=== PATIENT | female | born 1950 | race Caucasian/White ===

== ENCOUNTER 2022-08-07 16:07 | Observation (INO) | payer OTHER, BC ==
[2022-08-07 16:41] VITALS: BMI 32.7
[2022-08-07] MEDS ORDERED: MECLIZINE HCL 25 MG TABLET (FP) PO ONE (17:54)
[2022-08-07] MEDS ORDERED: MECLIZINE HCL 25 MG TABLET (FP) ONE (18:05)
[2022-08-07] MEDS ORDERED: SODIUM CHLORIDE 0.9% 500 ML INFUS.BAG IV ONE (19:17)
[2022-08-07] MEDS ORDERED: METOCLOPRAMIDE HCL INJECTION 10 MG/2 ML VIAL IVPUSH ONE (19:17)
[2022-08-07] MEDS ORDERED: METOCLOPRAMIDE HCL INJECTION 10 MG/2 ML VIAL ONE (20:34)
[2022-08-07 21:29] LABS: EOS % 0.9 % (0-4.5); HEMATOCRIT 40.1 % (32.4-45.2); HEMOGLOBIN 13.2 GM/dL (10.7-15.3); INR 1.09 (0.83-1.09); LYMPH % 24.2 % (8-40); MCH 29.6 pg (25.7-33.7); MCHC 32.9 g/dl (32.0-36.0); MEAN PLT VOLUME 7.5 fl (7.5-11.1); MONO % 6.3 % (3.8-10.2); NEUT % 67.6 % (42.8-82.8); PLATELET COUNT 399 10^3/uL (134-434); PROTHROMBIN TIME (PATIENT) 12.5 SEC (9.7-13.0); RBC 4.46 M/mm3 (3.60-5.2); RDW 13.9 % (11.6-15.6); WHITE BLOOD COUNT 10.3 K/mm3 (4.0-10.0)
[2022-08-07 21:30] LABS: ACTIVATED PTT 30.7 SECONDS (25.2-36.5)
[2022-08-07 21:45] LABS: ALBUMIN 3.4 g/dl (3.4-5.0); BLOOD UREA NITROGEN 15.4 mg/dL (7-18); CALCIUM 9.2 mg/dL (8.5-10.1)
[2022-08-07 21:49] LABS: CREATININE 0.7 mg/dL (0.55-1.3)
[2022-08-07 21:50] LABS: BILIRUBIN,TOTAL 0.6 mg/dL (0.2-1)
[2022-08-07 21:51] LABS: CHOLESTEROL 195 mg/dL (50-200); TOT PROT 6.5 g/dl (6.4-8.2); TRIGLYCERIDES 63 mg/dL (0-150)
[2022-08-07 21:52] LABS: LDL CHOLESTEROL (ONLY SJRH) 107 mg/dL (5-100)
[2022-08-07 21:54] LABS: HDL CHOLESTEROL 81 mg/dL (40-60)
[2022-08-08] MEDS ORDERED: ACETAMINOPHEN 325 MG TABLET (FP) ONE ×2 (05:12→19:58)
[2022-08-08] MEDS: ACETAMINOPHEN 325 MG TABLET (FP) PO PRN ×2 (05:15→20:12)
[2022-08-08 08:16] LABS: BASO % 0.9 % (0-2.0); EOS % 1.8 % (0-4.5); HEMATOCRIT 36.7 % (32.4-45.2); HEMOGLOBIN 11.6 GM/dL (10.7-15.3); LYMPH % 30.2 % (8-40); MCHC 31.5 g/dl (32.0-36.0); MEAN CELL VOLUME 91.9 fl (80-96); MEAN PLT VOLUME 7.4 fl (7.5-11.1); MONO % 7.7 % (3.8-10.2); NEUT % 59.4 % (42.8-82.8); PLATELET COUNT 336 10^3/uL (134-434); RDW 14.2 % (11.6-15.6); WHITE BLOOD COUNT 7.7 K/mm3 (4.0-10.0)
[2022-08-08 08:33] LABS: CALCIUM 8.6 mg/dL (8.5-10.1)
[2022-08-08 08:34] LABS: BLOOD UREA NITROGEN 14.1 mg/dL (7-18); MAGNESIUM 2.1 mg/dL (1.8-2.4)
[2022-08-08 08:37] LABS: CREATININE 0.7 mg/dL (0.55-1.3); PHOSPHOROUS 3.4 mg/dL (2.5-4.9)
[2022-08-08 08:38] LABS: BILIRUBIN,TOTAL 0.4 mg/dL (0.2-1); TOT PROT 5.6 g/dl (6.4-8.2)
[2022-08-08] MEDS ORDERED: ENOXAPARIN NA (PORCINE) 40 MG/0.4 ML DISP.SYRIN SQ ONE (09:09)
[2022-08-08] MEDS: ENOXAPARIN NA (PORCINE) 40 MG/0.4 ML DISP.SYRIN SQ SCH (09:17)
[2022-08-08] MEDS ORDERED: ALPRAZolam 0.25 MG TABLET PO PRN (12:41)
[2022-08-08] MEDS: buPROPion HCL 100 MG TABLET PO SCH ×2 (12:51→22:32)
[2022-08-08] MEDS: lamoTRIgine 100 MG TABLET PO SCH (12:51)
[2022-08-08] MEDS ORDERED: MECLIZINE HCL 12.5 MG TABLET PO PRN (13:30)
[2022-08-08] MEDS ORDERED: ALPRAZolam 0.25 MG TABLET ONE (16:34)
[2022-08-09 02:08] VITALS: RESP 17
[2022-08-09 07:29] VITALS: BP 151/83; PULSE 65; TEMP 97.6
[2022-08-09] MEDS ORDERED: lamoTRIgine 100 MG TABLET ONE (10:29)
[2022-08-09] MEDS ORDERED: ENOXAPARIN NA (PORCINE) 40 MG/0.4 ML DISP.SYRIN SQ ONE (10:30)
[2022-08-09] MEDS ORDERED: buPROPion HCL 100 MG TABLET ONE (10:30)
[2022-08-09] MEDS: lamoTRIgine 100 MG TABLET PO SCH (10:46)
[2022-08-09] MEDS: ENOXAPARIN NA (PORCINE) 40 MG/0.4 ML DISP.SYRIN SQ SCH (10:46)
[2022-08-09] MEDS: buPROPion HCL 100 MG TABLET PO SCH (10:46)
[2022-08-09] MEDS ORDERED: ROSUVASTATIN CA 20 MG TABLET PO ONE (10:53)
[2022-08-09] MEDS ORDERED: LOSARTAN POTASSIUM 25 MG TABLET PO ONE (10:54)
[2022-08-09] MEDS ORDERED: ASPIRIN 81 MG CHEWABLE TABLETS PO SCH (11:00)
== END 2022-08-09 13:20 | disposition home or self-care (01) ==
LOC: JER 16:07 → JERBED 19:15
PROVIDERS: ADMIT Internal Medicine
PROC: 3E023GC Introduction of Other Therapeutic Substance into Muscle, Percutaneous Approach (ICD-10-PCS; principal; 2022-08-07)
PROC: 3E023GC Introduction of Other Therapeutic Substance into Muscle, Percutaneous Approach (ICD-10-PCS; 2022-08-07)
PROC: 3E033GC Introduction of Other Therapeutic Substance into Peripheral Vein, Percutaneous Approach (ICD-10-PCS; 2022-08-07)
PROC: 3E0337Z Introduction of Electrolytic and Water Balance Substance into Peripheral Vein, Percutaneous Approach (ICD-10-PCS; 2022-08-07)
DX: F41.9 Anxiety disorder, unspecified (principal); I10 Essential (primary) hypertension; F31.9 Bipolar disorder, unspecified; G45.9 Transient cerebral ischemic attack, unspecified; Z29.8 Encounter for other specified prophylactic measures; R42 Dizziness and giddiness
CPT/HCPCS: 0241U-QW; 36415; 70450-TC; 70551-TC; 71045-TC-FY; 80053; 80061; 83036; 83735; 84100; 84484; 85025; 85610; 85730; 93005; 93010; 96361; 96372; 96374; 99285-25; G0378

== ENCOUNTER 2023-10-14 18:52 | Inpatient (IN) | payer OTHER, BC ==
[2023-10-14 19:00] VITALS: BMI 36.5
[2023-10-14 20:24] LABS: BASO % 0.8 % (0-2.0); EOS % 0.9 % (0-4.5); HEMATOCRIT 33.3 % (32.4-45.2); HEMOGLOBIN 10.9 GM/dL (10.7-15.3); LYMPH % 20.3 % (8-40); MCH 28.8 pg (25.7-33.7); MCHC 32.6 g/dl (32.0-36.0); MEAN CELL VOLUME 88.3 fl (80-96); MEAN PLT VOLUME 7.6 fl (7.5-11.1); MONO % 5.5 % (3.8-10.2); NEUT % 72.5 % (42.8-82.8); PLATELET COUNT 331 10^3/uL (134-434); RBC 3.77 M/mm3 (3.60-5.2); WHITE BLOOD COUNT 7.3 K/mm3 (4.0-10.0)
[2023-10-14 20:37] LABS: ACTIVATED PTT 30.6 SECONDS (25.2-36.5); INR 1.08 (0.83-1.09); PROTHROMBIN TIME (PATIENT) 12.5 SEC (9.7-13.0)
[2023-10-14 20:41] LABS: POTASSIUM 4.3 mmol/L (3.5-5.1)
[2023-10-14 20:43] LABS: CALCIUM 8.8 mg/dL (8.5-10.1)
[2023-10-14 20:44] LABS: BLOOD UREA NITROGEN 11.9 mg/dL (7-18)
[2023-10-14 20:46] LABS: CREATININE 0.6 mg/dL (0.55-1.3)
[2023-10-14 20:48] LABS: BILIRUBIN,TOTAL 0.5 mg/dL (0.2-1); TOT PROT 6.1 g/dl (6.4-8.2)
[2023-10-14 20:51] LABS: N-TERMINAL BNP 458.6 pg/ml (5-125)
[2023-10-14] MEDS ORDERED: ATORVASTATIN CA 80 MG TABLET (FP) ONE (21:14)
[2023-10-14] MEDS ORDERED: ASPIRIN 81 MG CHEWABLE TABLETS ONE (21:15)
[2023-10-14] MEDS: ASPIRIN 81 MG CHEWABLE TABLETS PO ONE ×2 (21:22)
[2023-10-14] MEDS: ATORVASTATIN CA 80 MG TABLET (FP) PO ONE (21:23)
[2023-10-14 21:39] LABS: URINE APPEARANCE CLEAR; URINE BILIRUBIN NEGATIVE (NEGATIVE); URINE COLOR YELLOW; URINE GLUCOSE (UA) NEGATIVE (NEGATIVE); URINE KETONE NEGATIVE (NEGATIVE); URINE LEUK ESTERASE NEGATIVE (NEGATIVE); URINE NITRITE NEGATIVE (NEGATIVE); URINE PROTEIN NEGATIVE (NEGATIVE); URINE UROBILINOGEN 0.2 mg/dL (0.2-1.0)
[2023-10-14] MEDS ORDERED: HEPARIN NA (PORCINE) 5,000 UNITS/ML 1ML VIAL IVPUSH PRN (22:10)
[2023-10-14] MEDS ORDERED: FUROSEMIDE 40 MG/4 ML INJECTABLE VIAL ONE (22:18)
[2023-10-14] MEDS: FUROSEMIDE 40 MG/4 ML INJECTABLE VIAL IVPUSH ONE (22:22)
[2023-10-14] MEDS ORDERED: HEPARIN INFUSION - 25,000 UNITS/500 ML INFUS.BAG IVPB ONE (22:24)
[2023-10-14] MEDS ORDERED: HEPARIN NA (PORCINE) 5,000 UNITS/ML 1ML VIAL ONE (22:24)
[2023-10-14] MEDS: HEPARIN NA (PORCINE) 5,000 UNITS/ML 1ML VIAL IVPUSH STA (22:30)
[2023-10-14] MEDS: HEPARIN SOD,PORK IN 0.45% NACL 25,000 UNITS/500 ML INFUS.BAG IVPB SCH (22:30)
[2023-10-15] MEDS: ACETAMINOPHEN 325 MG TABLET (FP) PO ONE (06:06)
[2023-10-15] MEDS: PANTOPRAZOLE 40 MG TABLET PO SCH (06:07)
[2023-10-15] MEDS: LOSARTAN POTASSIUM 50 MG TABLET PO ONE (06:13)
[2023-10-15] MEDS: HEPARIN NA (PORCINE) 5,000 UNITS/ML 1ML VIAL IVPUSH PRN (06:46)
[2023-10-15 06:47] LABS: POTASSIUM 3.5 mmol/L (3.5-5.1)
[2023-10-15 06:53] LABS: BLOOD UREA NITROGEN 14.7 mg/dL (7-18); CALCIUM 8.3 mg/dL (8.5-10.1)
[2023-10-15 06:54] LABS: MAGNESIUM 1.6 mg/dL (1.8-2.4)
[2023-10-15 06:56] LABS: PHOSPHOROUS 3.8 mg/dL (2.5-4.9)
[2023-10-15 06:57] LABS: CREATININE 0.7 mg/dL (0.55-1.3); TOT PROT 6.1 g/dl (6.4-8.2)
[2023-10-15 06:58] LABS: BILIRUBIN,TOTAL 0.7 mg/dL (0.2-1)
[2023-10-15] MEDS ORDERED: LOSARTAN POTASSIUM 50 MG TABLET PO SCH (10:00)
[2023-10-15] MEDS: METOPROLOL TARTRATE 50 MG TABLET (FP) PO SCH (10:29)
[2023-10-15] MEDS: CHOLECALCIFEROL (VIT D3) 1,000 UNIT (25 MCG) TABLET PO SCH (10:30)
[2023-10-15] MEDS: LORATADINE 10 MG TABLET PO SCH (10:30)
[2023-10-15] MEDS: lamoTRIgine 100 MG TABLET PO SCH (11:41)
[2023-10-15] MEDS: FERROUS SO4 325 MG TABLET (FP) PO SCH (13:07)
[2023-10-15] MEDS: FUROSEMIDE 40 MG/4 ML INJECTABLE VIAL IVPUSH ONE (15:29)
[2023-10-15] MEDS: ACETAMINOPHEN 325 MG TABLET (FP) PO PRN (21:50)
[2023-10-15] MEDS: LORazepam 0.5 MG TABLET PO PRN (21:50)
[2023-10-16 07:25] LABS: POTASSIUM 3.4 mmol/L (3.5-5.1)
[2023-10-16 07:28] LABS: ALBUMIN 2.9 g/dl (3.4-5.0); CALCIUM 8.6 mg/dL (8.5-10.1)
[2023-10-16 07:29] LABS: BLOOD UREA NITROGEN 17.7 mg/dL (7-18)
[2023-10-16 07:32] LABS: CREATININE 0.8 mg/dL (0.55-1.3)
[2023-10-16 07:33] LABS: TOT PROT 5.8 g/dl (6.4-8.2)
[2023-10-16 07:34] LABS: BILIRUBIN,TOTAL 0.5 mg/dL (0.2-1)
[2023-10-16] MEDS ORDERED: REGADENOSON 0.4 MG/5 ML PRE-FILLED SYRINGE IVPUSH ONE (09:48)
[2023-10-16] MEDS ORDERED: FUROSEMIDE 40 MG/4 ML INJECTABLE VIAL IVPUSH SCH (10:00)
[2023-10-16 10:13] LABS: MAGNESIUM 1.9 mg/dL (1.8-2.4)
[2023-10-16 10:17] LABS: PHOSPHOROUS 4.3 mg/dL (2.5-4.9)
[2023-10-16] MEDS: REGADENOSON 0.4 MG/5 ML PRE-FILLED SYRINGE IVPUSH ONE (10:35)
[2023-10-16] MEDS: VITAMIN B COMP W-C 1 EA TABLET (NEPHRO-VITE) PO SCH (13:29)
[2023-10-16] MEDS: FUROSEMIDE 40 MG/4 ML INJECTABLE VIAL IVPUSH SCH (13:29)
[2023-10-16] MEDS: LOSARTAN POTASSIUM 50 MG TABLET PO SCH (13:29)
[2023-10-16] MEDS: POTASSIUM CHLORIDE ORAL LIQUID 20 MEQ/15 ML PO ONE (13:36)
[2023-10-16] MEDS: amLODIPine BESYLATE 5 MG TABLET (FP) PO SCH (14:43)
[2023-10-16] MEDS: predniSONE 20 MG TABLET (UD) PO ONE (21:21)
[2023-10-17] MEDS: predniSONE 20 MG TABLET (UD) PO ONE ×2 (03:28→08:57)
[2023-10-17 06:37] LABS: POTASSIUM 4.2 mmol/L (3.5-5.1)
[2023-10-17 06:39] LABS: CALCIUM 8.6 mg/dL (8.5-10.1)
[2023-10-17 06:40] LABS: BLOOD UREA NITROGEN 17.4 mg/dL (7-18)
[2023-10-17 06:43] LABS: CREATININE 0.8 mg/dL (0.55-1.3)
[2023-10-17 08:08] LABS: BASO % 0.2 % (0-2.0); EOS % 0.1 % (0-4.5); HEMATOCRIT 37.3 % (32.4-45.2); HEMOGLOBIN 12.9 GM/dL (10.7-15.3); LYMPH % 10.5 % (8-40); MCH 29.8 pg (25.7-33.7); MCHC 34.5 g/dl (32.0-36.0); MEAN CELL VOLUME 86.5 fl (80-96); MEAN PLT VOLUME 7.8 fl (7.5-11.1); NEUT % 88.2 % (42.8-82.8); PLATELET COUNT 338 10^3/uL (134-434); RBC 4.32 M/mm3 (3.60-5.2); RDW 14.6 % (11.6-15.6); WHITE BLOOD COUNT 6.7 K/mm3 (4.0-10.0)
[2023-10-17] MEDS: diphenhydrAMINE HCL 25 MG CAPSULE (FP) PO ONE (08:58)
[2023-10-17 15:02] VITALS: RESP 18
[2023-10-17 19:28] VITALS: BP 119/69; PULSE 86; TEMP 98.6
== END 2023-10-17 19:15 | disposition home or self-care (01) | DRG 291 ==
LOC: JER 18:52 → JERBED 22:30 → J4W 10-15 03:24
PROVIDERS: ADMIT Internal Medicine; ATTEND Internal Medicine
DX: I11.0 Hypertensive heart disease with heart failure (principal); I50.31 Acute diastolic (congestive) heart failure; N13.30 Unspecified hydronephrosis; F41.9 Anxiety disorder, unspecified; F31.9 Bipolar disorder, unspecified; M35.00 Sjogren syndrome, unspecified; K57.90 Diverticulosis of intestine, part unspecified, without perforation or abscess without bleeding; E66.9 Obesity, unspecified; Z68.36 Body mass index [BMI] 36.0-36.9, adult; D18.09 Hemangioma of other sites; N28.1 Cyst of kidney, acquired; N32.81 Overactive bladder; R51.9 Headache, unspecified
CPT/HCPCS: 0241U-QW; 36415; 71045-TC-FY; 71275-TC; 74176-TC; 76700-TC; 78452-TC; 80048; 80053; 80061; 81003; 83735; 83880; 84100; 84443; 84484; 85025; 85379; 85610; 85730; 86704; 86709; 86803; 86850; 86900; 86901; 87086; 87340; 87517; 93005; 93010; 93017; 93306-TC; 93970-TC; 99285-25; A9502; J1644; J2785; Q9967